=== PATIENT | male | born 1970 | race Caucasian/White ===

== ENCOUNTER 2019-02-08 18:50 | Emergency (ER) | payer SELFPAY ==
[~2019-02-08] VITALS: Ht 177.8 cm; Wt 83.9 kg
[2019-02-08 19:57] VITALS: BP 134/73
== END 2019-02-08 20:34 | disposition home or self-care (01) ==
LOC: ED 20:24
DX: R07.89 Other chest pain (principal); N28.9 Disorder of kidney and ureter, unspecified; E87.6 Hypokalemia; R19.7 Diarrhea, unspecified; I10 Essential (primary) hypertension
CPT/HCPCS: 36415; 71045; 80048; 82040; 84484; 85025; 93005; 99284

== ENCOUNTER 2021-04-15 11:03 | Outpatient (CLI) | payer MEDICAID, MEDICARE | END 2021-04-15 23:59 | disposition home or self-care (01) | LOC: CFH 11:03 | PROVIDERS: ATTEND Registered Nurse | DX: S06.0X0A Concussion without loss of consciousness, initial encounter (principal); X58.XXXA Exposure to other specified factors, initial encounter; Y93.89 Activity, other specified; Y92.89 Other specified places as the place of occurrence of the external cause; Y99.8 Other external cause status | CPT/HCPCS: 70450 ==